=== PATIENT | female | born 1990 | race Caucasian/White ===

== ENCOUNTER 2017-07-02 09:43 | Outpatient (CLI) | payer BC, MEDICAID | END 2017-07-02 10:40 | disposition home or self-care (01) | LOC: LC 09:43 | PROVIDERS: ATTEND Obstetrics & Gynecology | PROC: 4A1HXCZ Monitoring of Products of Conception, Cardiac Rate, External Approach (ICD-10-PCS; principal; 2017-07-02) | DX: Z34.93 Encounter for supervision of normal pregnancy, unspecified, third trimester (principal); Z36 Encounter for antenatal screening of mother | CPT/HCPCS: 59025 ==

== ENCOUNTER 2017-08-14 22:13 | Outpatient (CLI) | payer MEDICAID ==
[2017-08-14 23:00] LABS: APPEARANCE,URINE SLIGHTLY-CLOUDY; BILIRUBIN,URINE NEGATIVE (NEGATIVE); GLUCOSE, URINE NEGATIVE (NEGATIVE); KETONES,URINE NEGATIVE (NEGATIVE); LEUKOCYTE ESTERASE,URINE NEGATIVE (NEGATIVE); NITRITE,URINE NEGATIVE (NEGATIVE); PROTEIN,URINE NEGATIVE (NEGATIVE); URINE SPECIFIC GRAVITY 1.019
[2017-08-14] MEDS ORDERED: HYDROXYZINE PAMOATE 50 MG CAPSULE PO ONE (23:13)
[2017-08-14 23:16] LABS: URINE METHADONE SCREEN NEGATIVE; URINE OPIATES LOW NEGATIVE; URINE PHENCYCLIDINE SCREEN NEGATIVE
[2017-08-14 23:17] LABS: URINE BARBITURATES SCREEN NEGATIVE
[2017-08-14] MEDS ORDERED: HYDROXYZINE PAMOATE 50 MG CAPSULE ONE (23:25)
--- NOTE | 2017-08-14 23:41 | Non Stress Test Report ---
Non Stress Test Datetime Report Generated by CPN: 08/14/2017 23:41 DEMOGRAPHIC EGA NST: 38.2 EGA NST: 32.1 INDICATION Indication for Study: Ordered by Provider Indication for Study: Decreased Movement; Ordered by Provider Indication for Study (NST) Other: LC VITAL SIGNS Temperature - NST: 98.4 Pulse - NST: 95 RESP - NST: 14 NBPSYS NST: 124 NBPDIA NST: 59 MONITORING Monitor Explained: Monitor Explained; Test Explained; Patient Verbalized Understanding Monitor Explained: Monitor Explained; Test Explained; Patient Verbalized Understanding Time on Monitor: 08/14/2017 22:28 Time on Monitor: 07/02/2017 10:10 Time off Monitor: 08/14/2017 23:07 Time off Monitor: 07/02/2017 10:30 NST Duration: 39 NST Duration: 20 NST INTERVENTIONS NST Interventions: PO Hydration NST Interventions: PO Hydration; Reposition Patient Physician Notified NST: Dr Cooney BABY A: [id number] BABY A Movement : Present Movement : Present Contraction Frequency : x1 Contraction Frequency : Irr FHR Baseline : 150 Accelerations : 15X15 Accelerations : 15X15 Decelerations : None Decelerations : None Variability : Moderate 6-25bpm Variability : Moderate 6-25bpm NST Review: Meets Criteria for Reactive NST NST Review: Meets Criteria for Reactive NST NST Review and Verified By : anne garcia NST Review and Verified By : Ani Moffett RN NST Results: Reactive NST REPORT Report Trigger: Send Report
== END 2017-08-14 23:28 | disposition home or self-care (01) ==
LOC: LC 22:13
PROVIDERS: ATTEND Student in an Organized Health Care Education/Training Program
PROC: 4A1HXCZ Monitoring of Products of Conception, Cardiac Rate, External Approach (ICD-10-PCS; principal; 2017-08-14)
DX: O47.1 False labor at or after 37 completed weeks of gestation (principal); Z3A.38 38 weeks gestation of pregnancy
CPT/HCPCS: 81005; 80307; 59025; J3490

== ENCOUNTER 2017-08-26 12:17 | Inpatient (IN) | payer MEDICAID ==
[2017-08-26] MEDS ORDERED: OXYTOCIN/NORMAL SALINE 20 UNIT/1,000 ML RTUINJ IV PRN ×2 (12:37→16:35)
[2017-08-26] MEDS ORDERED: RINGERS SOLUTION,LACTATED 1,000 ML IV PRN (12:37)
[2017-08-26] MEDS ORDERED: RINGERS SOLUTION,LACTATED 300 ML IV ONE (12:37)
[2017-08-26 12:57] LABS: APPEARANCE,URINE SLIGHTLY-CLOUDY; BILIRUBIN,URINE NEGATIVE (NEGATIVE); GLUCOSE, URINE NEGATIVE (NEGATIVE); KETONES,URINE NEGATIVE (NEGATIVE); LEUKOCYTE ESTERASE,URINE TRACE (NEGATIVE); NITRITE,URINE NEGATIVE (NEGATIVE); PROTEIN,URINE 30 mg/dL (NEGATIVE); URINE SPECIFIC GRAVITY 1.019
[2017-08-26 13:20] LABS: URINE BARBITURATES SCREEN NEGATIVE; URINE METHADONE SCREEN NEGATIVE; URINE OPIATES LOW NEGATIVE; URINE PHENCYCLIDINE SCREEN NEGATIVE
[2017-08-26 13:35] LABS: ABSOLUTE LYMPHOCYTES (AUTO) 1.1 10^3/uL (0.5-4.7); ABSOLUTE MONOCYTES (AUTO) 0.6 10^3/uL (0.1-1.4); ABSOLUTE NEUT (AUTO) 6.1 10^3/uL (1.7-8.2); BASOPHILS % (AUTO) 0.4 % (0-2); EOSINOPHILS % (AUTO) 0.6 % (0-6); HEMOGLOBIN 11.4 g/dL (12.0-15.5); HGB HCT DIFFERENCE 1.2; LYMPHOCYTES % (AUTO) 13.5 % (13-45); MEAN CORPUSCULAR HEMOGLOBIN 28.8 pg (27.0-33.4); MEAN CORPUSCULAR HGB CONC 34.4 g/dL (32.0-36.0); MEAN CORPUSCULAR VOLUME 84 fl (80-97); MONOCYTES % (AUTO) 7.2 % (3-13); RED BLOOD COUNT 3.94 10^6/uL (3.72-5.28); RED CELL DISTRIBUTION WIDTH 13.1 % (11.5-14.0); SEGMENTED NEUTROPHILS % (AUTO) 78.3 % (42-78); WHITE BLOOD COUNT 7.8 10^3/uL (4.0-10.5)
[2017-08-26] MEDS ORDERED: OXYTOCIN/NORMAL SALINE 0 UNIT/0 ML RTUINJ ONE (14:13)
--- NOTE | 2017-08-26 15:18 | L&D Progress Notes ---
PROGRESS NOTES Datetime Report Generated by CPN: 08/26/2017 15:17 PROGRESS NOTE Comment: going to ROM but pt wants a epidural before we arom, intensity in uc's is worse, IVF bolus and epidural MEMBRANES Membranes: Intact SIGNATURE SIGNATURE: [id number];[id number] SIGNATURE: [id number] Assignment: Braulio Pierce DO Signature: with User ID: [email or web address] : with User ID: [email or web address]
[2017-08-26] MEDS ORDERED: EPHEDRINE SULFATE INJ 50 MG/1 ML AMPULE ONE (15:22)
[2017-08-26] MEDS ORDERED: BUPIVACAINE HCL 0.25 % INJ/PF (2.5 MG/1 ML) 30 ML VIAL ONE (15:23)
[2017-08-26] MEDS ORDERED: FENTANYL/BUPIVACAINE/NS/PF 0 MCG/0 ML RTUINJ EPI ONE (15:23)
[2017-08-26] MEDS ORDERED: OXYTOCIN/NORMAL SALINE 20 UNIT/1,000 ML RTUINJ ONE (15:25)
[2017-08-26] MEDS ORDERED: LIDOCAINE 1% INJ-PF (10 MG/ML) 30 ML SDV ONE (15:26)
[2017-08-26] MEDS ORDERED: MISOPROSTOL 0.2 MG TABLET ONE (15:26)
[2017-08-26] MEDS ORDERED: GLYCERIN/WITCH HAZEL LEAF 1 EACH MED..PAD TP PRN (16:35)
[2017-08-26] MEDS ORDERED: DIPHENHYDRAMINE HCL 25 MG CAPSULE PO PRN (16:35)
[2017-08-26] MEDS ORDERED: PROMETHAZINE HCL 25 MG TABLET PO PRN (16:35)
[2017-08-26] MEDS ORDERED: DIPH/PERTUSS(ACELL)/TETANUS VAC/PF 0.5 ML SYR (>=10YO) IM PRN (16:35)
[2017-08-26] MEDS ORDERED: ACETAMINOPHEN 650 MG SUPP.RECT PR PRN (16:35)
[2017-08-26] MEDS ORDERED: MISOPROSTOL 0.2 MG TABLET PR PRN (16:35)
[2017-08-26] MEDS ORDERED: MEASLES,MUMPS&RUBELLA VACC/PF 0.5 ML VIAL SUBCUT PRN (16:35)
[2017-08-26] MEDS ORDERED: PROMETHAZINE HCL 25 MG SUPP.RECT PR PRN (16:35)
[2017-08-26] MEDS ORDERED: BENZOCAINE/MENTHOL AEROSOL SPRAY 56 ML TOP PRN (16:35)
[2017-08-26] MEDS ORDERED: DIBUCAINE 1% OINTMENT 28 GM TP PRN (16:35)
[2017-08-26] MEDS ORDERED: ACETAMINOPHEN WITH CODEINE #3 TABLET PO PRN ×2 (16:35)
[2017-08-26] MEDS ORDERED: PROMETHAZINE HCL INJ 25 MG/1 ML VIAL IV PRN (16:35)
[2017-08-26] MEDS ORDERED: NA PHOS,M-B/NA PHOS,DI-BA (ADULT) 133 ML ENEMA PR PRN (16:35)
[2017-08-26] MEDS ORDERED: PSEUDOEPHEDRINE HCL 30 MG TABLET PO PRN (16:35)
[2017-08-26] MEDS ORDERED: MAGNESIUM HYDROXIDE SUSP 30 ML UDCUP PO PRN (16:35)
[2017-08-26] MEDS ORDERED: IBUPROFEN 800 MG TABLET ONE (16:40)
[2017-08-26] MEDS ORDERED: OXYCODONE-ACETAMINOPHEN 5-325 MG TABLET ONE (16:40)
--- NOTE | 2017-08-26 18:45 | Admission Physical ---
Datetime Report Generated by CPN: 08/26/2017 18:45 CURRENT ADMISSION Hx Assessment: The History has been Reviewed and is Current Chief Complaint: Uterine Contractions Indication for Induction: Post Dates Indication for Induction: Postterm, Intrauterine ; No Active Labor; Intact Membranes Indication for Induction- Other: Oligo Admit Plan: Admit to Unit; Initiate Labor Induction Protocol ALLERGIES Medication Allergies: No Medication Allergies: No Known Allergies (08/26/2017) Medication Allergies: No Known Allergies (07/02/2017) Medication Allergies: No Known Allergies (03/29/2012) Latex: No Latex Allergies OBSTETRICAL HISTORY EDC: 08/26/2017 00:00 : 4 Para: 1 Term: 1 : 0 SAB: 2 Ectopic: 0 Livin Cesareans: 0 VBACs: 0 Multiple Births: 0 Gestational Diabetes: No Rh Sensitization: No Incompetent Cervix: No JONI: No Infertility: No ART Treatment: No Uterine Anomaly: No IUGR: No Hx Previous C/S: No Macrosomia: No Hx Loss/Stillborn: No PIH: No Hx : No Placenta Previa/Abruption: No Depression/PP Depression: Yes PTL/PROM: No Post Hemorrhage: No Current Procedures: Ultrasound Obstetrical History Comments: 2011 38 weeks baby boy 2013 cureent SEE RECORDS Alcohol: No Marijuana : No Cocaine: No Other Illicit Drugs: No Cigarettes: Current Everyday Smoker. 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 Surgery: No Heart Disease: No Hosp/Surgery: Yes Autoimmune Disorder: No Anesthetic Complications: No Kidney Disease: No Abnormal Pap Smear: Yes Neuro/Epilepsy: No Psychiatric Disorders: Yes Other Medical Diseases: No Hepatitis/Liver Disease: No Significant Family History: No Varicosities/Phlebitis: No Trauma/Violence : No Thyroid Dysfunction: No Medical History Comments: CHILDBIRTH abnormal pap smear 2017 Hx of Anxiety Hospitalization-[facility] INFECTIOUS HISTORY Gonorrhea: No Genital Herpes: No Chlamydia: No Tuberculosis: No Syphilis: No Hepatitis: No HIV/AIDS Exposure: No Rash or Viral Illness: No HPV: Yes Infectious History Comments: HPV 2015 PHYSICAL EXAM General: Normal HEENT: Normal Neurologic: Normal Thyroid: Normal Heart: Normal Lungs: Normal Breast: Deferred Back: Normal Abdomen: Normal Genitourinary Exam: Normal Extremities: Normal DTRs: Normal Pelvic Type: Adequate Physical Exam Comments: KHRIS = 4.7, 40 weeks Hx: anxiety, depression, PPD, GHTN, GBS neg Vital Signs: Reviewed MEMBRANES Membranes: Intact FETUS A EGA: 40.0 Monitoring: External US FHR- Baseline: 145 Variability: Moderate 6-25bpm Accelerations: 15X15 Decelerations: Variable Admit Comment: Admitted from office with oligo. GBS neg, Cat 1, Plan: Pitocin, AROM PLANS FOR LABOR AND DELIVERY Labor and Delivery: None Pain Management: Epidural Feeding Preference: Breast Benefit of Breast Feed Discussed: Yes Circumcision: N/A INFORMED CONSENT Assignment: Braulio Pierce DO Signature: with User ID: [email or web address] : with User ID: [email or web address]
[2017-08-26] MEDS: FAMOTIDINE 20 MG TABLET PO SCH (21:21)
[2017-08-26] MEDS: IBUPROFEN 800 MG TABLET PO SCH (21:26)
[2017-08-26] MEDS: FERROUS SULFATE 325 MG TABLET PO SCH (21:39)
[2017-08-26] MEDS: DOCUSATE SODIUM 100 MG CAPSULE PO SCH (21:39)
[2017-08-27] MEDS: IBUPROFEN 800 MG TABLET PO SCH ×3 (06:26→22:12)
[2017-08-27 07:14] LABS: HEMATOCRIT 33.5 % (36.0-47.0); HEMOGLOBIN 11.5 g/dL (12.0-15.5); MEAN CORPUSCULAR HEMOGLOBIN 28.9 pg (27.0-33.4); MEAN CORPUSCULAR HGB CONC 34.3 g/dL (32.0-36.0); MEAN CORPUSCULAR VOLUME 84 fl (80-97); RED BLOOD COUNT 3.97 10^6/uL (3.72-5.28)
[2017-08-27] MEDS: PRENATAL VITAMIN W-O CA NO5/FE FUMARATE/FA CAPSULE PO SCH (09:43)
[2017-08-27] MEDS: DOCUSATE SODIUM 100 MG CAPSULE PO SCH ×2 (09:44→18:19)
[2017-08-27] MEDS: SENNOSIDES/DOCUSATE 8.6-50 MG 1 EACH TABLET PO SCH (09:45)
[2017-08-27] MEDS: FAMOTIDINE 20 MG TABLET PO SCH ×2 (09:45→22:13)
[2017-08-27] MEDS: FERROUS SULFATE 325 MG TABLET PO SCH ×2 (09:47→18:19)
--- NOTE | 2017-08-27 11:22 | PDOC PROGRESS REPORT ---
Subjective-OB Subjective: Post Delivery Day:1 26 year old G2 now P2 s/p ppd1. Voiding, ambulating and without difficulty. Denies any needs at this time Physical Exam (OB) Vital Signs: Temp Pulse Resp BP Pulse Ox 97.8 F 58 L 18 115/74 100 08/27/17 08:58 08/27/17 08:58 08/27/17 08:58 08/27/17 08:58 08/27/17 08:58 Intake & Output 08/26/17 08/27/17 08/28/17 06:59 06:59 06:59 Weight 81 kg - General General Appearance: Appears well In distress: None - PIH/Pre-Eclampsia Clonus: Negative Headache: Absent Epigastric Pain: No Visual Changes: No - Episiotomy/Laceration Site Condition: N/A - Lochia Lochia Amount: Small 10-25 ml Lochia Color: Rubra/Red - Abdomen Description: Soft Hernia Present: No Fundal Description: Firm, Midline Fundal Height: u/u - u/2 - Respiratory Respiratory Status: No respiratory distress - Extremities Upper extremity: Normal inspection Lower extremities: Normal inspection - Neurological Cognition: Normal Orientation: AAOx4 - Psychological Associated symptoms: Normal affect, Normal mood Objective-Diagnostic Laboratory: 08/27/17 06:48 08/26/17 08/26/17 08/26/17 12:19 13:21 13:21 WBC 7.8 RBC 3.94 Hgb 11.4 L Hct 33.0 L MCV 84 MCH 28.8 MCHC 34.4 RDW 13.1 Plt Count 231 Seg Neutrophils % 78.3 H Lymphocytes % 13.5 Monocytes % 7.2 Eosinophils % 0.6 Basophils % 0.4 Absolute Neutrophils 6.1 Absolute Lymphocytes 1.1 Absolute Monocytes 0.6 Absolute Eosinophils 0.0 Absolute Basophils 0.0 Urine Color YELLOW Urine Appearance SLIGHTLY-CLOUDY Urine pH 7.0 Ur Specific [place] 1.019 Urine Protein 30 H Urine Glucose (UA) NEGATIVE Urine Ketones NEGATIVE Urine Blood NEGATIVE Urine Nitrite NEGATIVE Ur Leukocyte Esterase TRACE H Blood Type O POSITIVE Antibody Screen NEGATIVE 08/27/17 06:48 WBC 10.0 RBC 3.97 Hgb 11.5 L Hct 33.5 L MCV 84 MCH 28.9 MCHC 34.3 RDW 13.0 Plt Count 200 Seg Neutrophils % Lymphocytes % Monocytes % Eosinophils % Basophils % Absolute Neutrophils Absolute Lymphocytes Absolute Monocytes Absolute Eosinophils Absolute Basophils Urine Color Urine Appearance Urine pH Ur Specific [place] Urine Protein Urine Glucose (UA) Urine Ketones Urine Blood Urine Nitrite Ur Leukocyte Esterase Blood Type Antibody Screen Assessment and Plan(PN) - Assessment and Plan (1) Oligohydramnios Qualifiers: Fetus number: single or unspecified fetus Trimester: third trimester Qualified Code(s): O41.03X0 - Oligohydramnios, third trimester, not applicable or unspecified Is this a current diagnosis for this admission?: Yes Plan: delivered (2) Normal vaginal delivery Is this a current diagnosis for this admission?: Yes Plan: routine pp care - Time Spent with Patient Time with patient: 15-25 minutes Medications reviewed and adjusted accordingly: Yes - Disposition Anticipated Discharge: Home Within: within 24 hours
[2017-08-28] MEDS: IBUPROFEN 800 MG TABLET PO SCH (05:41)
--- NOTE | 2017-08-28 09:43 | PDOC PROGRESS REPORT ---
Subjective-OB Subjective: Post Delivery Day: 26 year old. Denies any needs at this time Doing well, BF @ BS, ready to go home, scant bleeding, no pain, eating well Physical Exam (OB) Vital Signs: Temp Pulse Resp BP Pulse Ox 98.1 F 52 L 16 131/73 H 100 08/28/17 08:02 08/28/17 08:02 08/28/17 08:02 08/28/17 08:02 08/28/17 08:02 Intake & Output 08/27/17 08/28/17 08/29/17 06:59 06:59 06:59 Intake Total 900 Balance 900 Weight 81 kg - PIH/Pre-Eclampsia Clonus: Negative Headache: Absent Epigastric Pain: No Visual Changes: No - Lochia Lochia Amount: Scant < 10 ml Lochia Color: Rubra/Red - Abdomen Description: Soft Hernia Present: No Fundal Description: Firm, Midline Fundal Height: u/u - u/2 Objective-Diagnostic Laboratory: 08/27/17 06:48 Assessment and Plan(PN) - Assessment and Plan (1) Oligohydramnios Qualifiers: Fetus number: single or unspecified fetus Trimester: third trimester Qualified Code(s): O41.03X0 - Oligohydramnios, third trimester, not applicable or unspecified Is this a current diagnosis for this admission?: Yes (2) Normal vaginal delivery Is this a current diagnosis for this admission?: Yes - Time Spent with Patient Time with patient: Less than 15 minutes Medications reviewed and adjusted accordingly: Yes - Disposition Anticipated Discharge: Home Within: Other - home today
--- NOTE | 2017-08-28 09:46 | PDOC DISCHARGE SUMMARY ---
Final Diagnosis Discharge Date: 08/28/17 - Final Diagnosis (1) Oligohydramnios Is this a current diagnosis for this admission?: Yes (2) Normal vaginal delivery Is this a current diagnosis for this admission?: Yes Discharge Data - Discharge Medication Home Medications: Pnv,Calcium 72/Iron/Folic Acid [Pnv Plus Multivit Tab] 1 tab PO DAILY 07/02/17 Gestational Age: 40 Reason(s) for Admission: Onset of Labor Admission Note: oligohydramnios Procedures: NST, Ultrasound Intrapartum Procedure(s): Spontaneous Vaginal Delivery - [place] Data Baby 1 Female at 1 minute: 9 at 5 minutes: 9 Weight: 3.6 kg Home with Mother: Yes Complications: No - Diagnosis Test Laboratory: Temp Pulse Resp BP Pulse Ox 98.1 F 52 L 16 131/73 H 100 08/28/17 08:02 08/28/17 08:02 08/28/17 08:02 08/28/17 08:02 08/28/17 08:02 08/26/17 08/26/17 08/27/17 12:19 13:21 06:48 RBC 3.94 3.97 Hgb 11.4 L 11.5 L Hct 33.0 L 33.5 L Urine Opiates Screen NEGATIVE - Discharge information/Instructions Discharge Activity: Activity As Tolerated, No Lifting Over 10 Pounds, Pelvic Rest Discharge Diet: As Tolerated, Regular Disposition: HOME, SELF-CARE Follow up with: [facility] in: 4, Weeks
[2017-08-28] MEDS: SENNOSIDES/DOCUSATE 8.6-50 MG 1 EACH TABLET PO SCH (11:33)
[2017-08-28] MEDS: DOCUSATE SODIUM 100 MG CAPSULE PO SCH (11:33)
[2017-08-28] MEDS: FAMOTIDINE 20 MG TABLET PO SCH (11:33)
[2017-08-28] MEDS: FERROUS SULFATE 325 MG TABLET PO SCH (11:34)
[2017-08-28] MEDS: PRENATAL VITAMIN W-O CA NO5/FE FUMARATE/FA CAPSULE PO SCH (11:34)
[2017-08-28 13:19] VITALS: BP 120/60
--- NOTE | 2017-09-01 14:14 | Delivery Summary ---
Del Sum A-C Datetime Report Generated by CPN: 09/01/2017 14:14 DELIVERY PERSONNEL DELIVERY PERSONNEL: [id number] Delivery Doctor:: Claribel Emmanuel CNM Labor and Delivery Nurse:: Tucker Caro RN Nursery Nurse:: July Reyesprabhjotdeepa, RN MATERNAL INFORMATION Delivery Anesthesia: None Medications After Delivery: Cytotec 600mcg Per Rectum/Vagina Estimated Blood Loss (ml): 300 Maternal Complications: Precipitous Labor (<3hrs) Provider Comments: Pt progressed quickly, on perineum, voable female from OA to HALEY over intact perineum and compound handm placed on mothers abd, cord clamped and cut after 2 minutes by gmother. Spont del of grossly normal intact placenta, 3 vc, EBL = 300 cc. FFFM, IV Pitocin, massagem cytotec 600mcg via rectum Baby and mom remain in recovery in stable xondition (Annotations: Data stored by N on behalf of user) LABOR SUMMARY EDC: 08/26/2017 00:00 No. Babies in Womb: 1 Attempted: No Labor Anesthesia: None LABOR INFORMATION Reason for Induction: Oligohydramnios Onset of Labor: 08/26/2017 14:40 Complete Dilatation: 08/26/2017 16:11 Oxytocin: Induction Group B Beta Strep: negative Steroids Given: None Reason Steroids Not Administered: Not Applicable MEMBRANES Membranes Rupture Method: Spontaneous Rupture of Membranes: 08/26/2017 16:00 Length of Rupture (hr): 0.22 Amniotic Fluid Color: Bloody Amniotic Fluid Amount: Scant Amniotic Fluid Odor: Normal STAGES OF LABOR Stage 1 hr: 1 Stage 1 min: 31 Stage 2 hr: 0 Stage 2 min: 2 Stage 3 hr: 0 Stage 3 min: 6 Total Time in Labor hr: 1 Total Time in Labor min: 39 VAGINAL DELIVERY Episiotomy: None Laceration #1: None Laceration Extension #1: N/A Laceration Repair: Not Applicable CSECTION DELIVERY Primary Indication: N/A BABY A INFORMATION Infant Delivery Date/Time: 08/26/2017 16:13 Method of Delivery: Vaginal Born in Route : No : N/A Forceps: N/A Vacuum Extraction: N/A Shoulder Dystocia : No PRESENTATION/POSITION BABY A Presentation: Cephalic Cephalic Presentation: Vertex Vertex Position: Right Occipital Anterior Breech Presentation: N/A PLACENTA INFORMATION BABY A Placenta Delivery Time : 08/26/2017 16:19 Placenta Method of Delivery: Spontaneous Placenta Status: Delivered SCORES BABY A Heart Rate 1 min: >100 bpm Resp Effort 1 min: Good Cry Reflex Irritability 1 min: Cough or Sneeze or Pulls Away Muscle Tone 1 min: Active Motion Color 1 min: Body [place] Walk, Extremities Blue SCORE 1 MIN: 9 Heart Rate 5 min: >100 bpm Resp Effort 5 min: Good Cry Reflex Irritability 5 min: Cough or Sneeze or Pulls Away Muscle Tone 5 min: Active Motion Color 5 min: Body [place] Walk, Extremities Blue SCORE 5 MIN: 9 INFANT INFORMATION BABY A Gestational Age at Delivery: 40.0 Gestational Status: Full Term- 39- 40.6 Weeks Outcome : Liveborn Condition : Stable Sex: Female IDENTIFICATION BABY A Verification Date/Time: 08/26/2017 16:13 ID Band Number: [id number] Mother's Name Verified: Yes Infant RN Verifying Infant: Mohamud Gan SIMA Additional Verifying Personnel: ANEUDY Cohen WEIGHT/LENGTH BABY A Infant Birthweight (gm): 3590 Infant Weight (lb): 7 Weight (oz): 15 Infant Length (in): 21.25 Length (cm): 53.98 CORD INFORMATION BABY A No. Cord Vessels: 3 Nuchal Cord : N/A Nuchal Cord- Other: compound hand Cord Blood Taken: Yes-For Eval (Mom's Blood Type - or O+) Infant Suction: None ASSESSMENT BABY A Infant Complications: None Physical Findings at Delivery: Within Normal Limits Respirations: Appears Normal Skin to Skin: Yes Skin to Skin Time (min): 60 Cardiac Cath Lab Radiology Technologist/ALS Called : No Infant Care By: Tucker Caro RN
== END 2017-08-28 14:45 | disposition home or self-care (01) | DRG 775 ==
LOC: LR 12:17 → 2S 18:44
PROVIDERS: ADMIT Obstetrics & Gynecology; ATTEND Obstetrics & Gynecology
PROC: 10E0XZZ Delivery of Products of Conception, External Approach (ICD-10-PCS; principal; 2017-08-26)
PROC: 3E033VJ Introduction of Other Hormone into Peripheral Vein, Percutaneous Approach (ICD-10-PCS; 2017-08-26)
PROC: 4A1HXCZ Monitoring of Products of Conception, Cardiac Rate, External Approach (ICD-10-PCS; 2017-08-26)
DX: O41.03X0 Oligohydramnios, third trimester, not applicable or unspecified (principal); O48.0 Post-term pregnancy; O99.344 Other mental disorders complicating childbirth; F32.9 Major depressive disorder, single episode, unspecified; O99.334 Smoking (tobacco) complicating childbirth; F17.210 Nicotine dependence, cigarettes, uncomplicated; O62.3 Precipitate labor; O32.6XX0 Maternal care for compound presentation, not applicable or unspecified; Z87.891 Personal history of nicotine dependence; Z28.82 Immunization not carried out because of caregiver refusal; Z3A.40 40 weeks gestation of pregnancy; Z37.0 Single live birth
CPT/HCPCS: 36415; 80307; 81005; 85025; 85027; 86592; 86850; 86900; 86901; J2590; J3490

== ENCOUNTER → 2019-09-10 | Outpatient (CLI) | payer BC, MEDICAID | LOC: LAB 18:12 | PROVIDERS: ATTEND Nurse Practitioner Family | DX: R30.0 Dysuria (principal) | CPT/HCPCS: 87086; 87088; 87186 ==

== ENCOUNTER 2020-09-11 17:37 | Outpatient (CLI) | payer BC ==
[2020-09-11 18:41] LABS: APPEARANCE,URINE SLIGHTLY-CLOUDY; BILIRUBIN,URINE NEGATIVE (NEGATIVE); COLOR,URINE YELLOW; GLUCOSE, URINE NEGATIVE (NEGATIVE); KETONES,URINE NEGATIVE (NEGATIVE); LEUKOCYTE ESTERASE,URINE NEGATIVE (NEGATIVE); NITRITE,URINE NEGATIVE (NEGATIVE); PROTEIN,URINE NEGATIVE (NEGATIVE); URINE SPECIFIC GRAVITY 1.016; UROBILINOGEN,URINE NEGATIVE mg/dL (<2.0)
[2020-09-11 19:05] LABS: URINE AMPHETAMINES SCREEN NEGATIVE; URINE BARBITURATES SCREEN NEGATIVE; URINE BENZODIAZEPINES SCREEN NEGATIVE; URINE COCAINE SCREEN NEGATIVE; URINE MARIJUANA (THC) SCREEN NEGATIVE; URINE METHADONE SCREEN NEGATIVE; URINE PHENCYCLIDINE SCREEN NEGATIVE
[2020-09-11 19:08] LABS: UR PRO/CREAT RATIO RESULT 0.1 mg/mg (0.0-0.2); URINE CREATININE 111.8 mg/dL (16-327); URINE PROTEIN 10.4 mg/dL (<12)
[2020-09-11 19:35] LABS: ABSOLUTE EOSINOPHILS # (AUTO) 0.1 10^3/uL (0.0-0.6); ABSOLUTE LYMPHOCYTES (AUTO) 1.8 10^3/uL (0.5-4.7); ABSOLUTE MONOCYTES (AUTO) 0.6 10^3/uL (0.1-1.4); ABSOLUTE NEUT (AUTO) 5.9 10^3/uL (1.7-8.2); BASOPHILS % (AUTO) 0.4 % (0-2); EOSINOPHILS % (AUTO) 0.9 % (0-6); HEMATOCRIT 36.4 % (36.0-47.0); HEMOGLOBIN 12.7 g/dL (12.0-15.5); MEAN CORPUSCULAR VOLUME 89 fl (80-97); MONOCYTES % (AUTO) 7.5 % (3-13); PLATELET COUNT 221 10^3/uL (150-450); RED BLOOD COUNT 4.12 10^6/uL (3.72-5.28); RED CELL DISTRIBUTION WIDTH 13.2 % (11.5-14.0); SEGMENTED NEUTROPHILS % (AUTO) 70.2 % (42-78); TOTAL CELLS COUNTED % (AUTO) 100 %; WHITE BLOOD COUNT 8.4 10^3/uL (4.0-10.5)
[2020-09-11 19:51] LABS: ALBUMIN 3.9 g/dL (3.5-5.0); ALKALINE PHOSPHATASE 120 U/L (38-126); ANION GAP 13 (5-19); ASPARTATE AMINO TRANSFERASE 16 U/L (14-36); BILIRUBIN,DIRECT 0.1 mg/dL (0.0-0.4); BILIRUBIN,TOTAL 0.6 mg/dL (0.2-1.3); BLOOD UREA NITROGEN 8 mg/dL (7-20); CALCIUM 9.3 mg/dL (8.4-10.2); CARBON DIOXIDE 21 mmol/L (22-30); CHLORIDE 101 mmol/L (98-107); GLUCOSE 83 mg/dL (75-110); POTASSIUM 3.9 mmol/L (3.6-5.0); TOTAL PROTEIN 7.3 g/dL (6.3-8.2); URIC ACID 4.3 mg/dL (2.5-6.2)
--- NOTE | 2020-09-12 12:04 | Non Stress Test Report ---
Non Stress Test Datetime Report Generated by CPN: 09/12/2020 12:04 DEMOGRAPHIC Test Number: 1 EGA NST: 38.4 EGA NST: 38.4 INDICATION Indication for Study (NST) Other: LC- preE workup Indication for Study (NST) Other: preeclampsia workup VITAL SIGNS Temperature - NST: 98.3 Pulse - NST: 103 RESP - NST: 18 NBPSYS NST: 130 NBPDIA NST: 68 URINE RESULTS Urine Protein, NST: Negative Urine Ketones - NST: Negative Urine Glucose - NST: Negative Urine Blood - NST: Negative MONITORING Monitor Explained: Monitor Explained; Test Explained; Patient Verbalized Understanding Monitor Explained: Monitor Explained; Test Explained; Patient Verbalized Understanding Time on Monitor: 09/11/2020 19:17 Time on Monitor: 09/11/2020 18:15 Time off Monitor: 09/11/2020 20:08 Time off Monitor: 09/11/2020 18:57 NST Duration: 51 NST Duration: 42 NST INTERVENTIONS NST Interventions: Reposition Patient NST Interventions: PO Hydration Physician Notified NST: Dr. Haddad Physician Notified NST: Dr. Haddad BABY A: [id number] BABY A Movement : Present Movement : Present Contraction Frequency : irritability FHR Baseline : 130 Accelerations : 15X15 Decelerations : None Variability : Moderate 6-25bpm NST Review: Meets Criteria for Reactive NST NST Review and Verified By : SIMA Le Results: Reactive NST REPORT Report Trigger: Send Report Report Trigger: Send Report
== END 2020-09-11 20:08 | disposition home or self-care (01) ==
LOC: LC 17:37
PROVIDERS: ATTEND Obstetrics & Gynecology Gynecology
DX: O14.93 Unspecified pre-eclampsia, third trimester (principal); Z3A.38 38 weeks gestation of pregnancy; Z02.83 Encounter for blood-alcohol and blood-drug test
CPT/HCPCS: 36415; 59025; 80053; 80307; 81001; 82570; 83615; 84156; 84550; 85025

== ENCOUNTER 2020-09-12 12:04 | Inpatient (IN) | payer BC ==
[2020-09-12] MEDS ORDERED: RINGERS SOLUTION,LACTATED 1,000 ML IV ONE (12:26)
[2020-09-12] MEDS ORDERED: RINGERS SOLUTION,LACTATED 1,000 ML IV PRN (12:26)
[2020-09-12 13:08] LABS: HEMATOCRIT 35.3 % (36.0-47.0); HEMOGLOBIN 12.3 g/dL (12.0-15.5); MEAN CORPUSCULAR HEMOGLOBIN 30.9 pg (27.0-33.4); MEAN CORPUSCULAR VOLUME 88 fl (80-97); PLATELET COUNT 213 10^3/uL (150-450); RED CELL DISTRIBUTION WIDTH 13.4 % (11.5-14.0); WHITE BLOOD COUNT 8.1 10^3/uL (4.0-10.5)
--- NOTE | 2020-09-12 13:08 | Admission Physical ---
Datetime Report Generated by CPN: 09/12/2020 13:08 CURRENT ADMISSION Hx Assessment: The History has been Reviewed and is Current Chief Complaint: Scheduled Induction of Labor; Sent from OB Office for Evaluation and Treatment - Please Specify Chief Complaint Other: sent from office for IOL severe BPs Indication for Induction: Chronic Primary/Essential HTN Indication for Induction- Other: CHTN with severe BPs CHTN vs pre-e Admit Impression : Term, Intrauterine Admit Plan: Admit to Unit; Initiate Labor Induction Protocol ALLERGIES Medication Allergies: No Medication Allergies: No Known Allergies (09/12/2020) Latex: No Latex Allergies OBSTETRICAL HISTORY EDC: 09/21/2020 00:00 : 5 Para: 2 Term: 0 : 0 SAB: 2 IAB: 0 Livin Gestational Diabetes: No Rh Sensitization: No Incompetent Cervix: No JONI: No Infertility: No ART Treatment: No Uterine Anomaly: No IUGR: No Hx Previous C/S: No Macrosomia: No Hx Loss/Stillborn: No PIH: Yes Hx : No Placenta Previa/Abruption: No Depression/PP Depression: Yes PTL/PROM: No Post Hemorrhage: No Current Procedures: Ultrasound; NST Obstetrical History Comments: G1 - 05/18/12 38.4wk male G2 - 08/2014 SAB D_C G3 - 09/2015 G4 - 08/26/2017 40wk female SEE RECORDS Alcohol: No Marijuana : No Cocaine: No Other Illicit Drugs: No Cigarettes: Former Smoker. 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 Heart Disease: No Hosp/Surgery: Yes Autoimmune Disorder: No Anesthetic Complications: No Kidney Disease: No Abnormal Pap Smear: Yes Neuro/Epilepsy: No Psychiatric Disorders: Yes Other Medical Diseases: Yes Hepatitis/Liver Disease: No Significant Family History: No Varicosities/Phlebitis: No Thyroid Dysfunction: No Medical History Comments: h/o of preeclampsia with prior , ghtn current ; depression and anxiety (prescribed Zoloft during but is not taking); childbirth x 2; ASCUS-HPV neg pap and colpo 2016, last pap wnl; migraines with aura INFECTIOUS HISTORY Gonorrhea: No Genital Herpes: No Chlamydia: No Tuberculosis: No Syphilis: No Hepatitis: No HIV/AIDS Exposure: No Rash or Viral Illness: No HPV: No PHYSICAL EXAM General: Normal Heart: Normal Lungs: Normal Abdomen: Normal Extremities: Normal Pelvic Type: Adequate Physical Exam Comments: proven to 9lbs 1 oz Vital Signs: Reviewed; Within Normal Limits VAGINAL EXAM Contraction Comments: rare FETUS A EGA: 38.5 Monitoring: External US Decelerations: None FHR Category: Category I Estimated Weight (gm): 4120 Presentation: Vertex Admit Comment: 29yo into L_D from clinic for direct admission with severe range bps in office x2 days. Pt is O pos, RI, GBS neg with significant medical hx of depression, anxiety and CHTN. Has done 2 pre-e work ups last one 08/27 with 24hr urine 296 all other wnl. Plan is IOL with pitocin at this time. pre-e labs drawn on admission. Dr. Neal is the OB precision layout worker today and aware of admission. PLANS FOR LABOR AND DELIVERY Labor and Delivery: None Pain Management: Epidural Feeding Preference: Breast Benefit of Breast Feed Discussed: Yes Circumcision: Yes INFORMED CONSENT Assignment: Arabella Neal MD Signature: with User ID: [email or web address] : with User ID: [email or web address]
[2020-09-12 13:09] LABS: URINE AMPHETAMINES SCREEN NEGATIVE; URINE BARBITURATES SCREEN NEGATIVE; URINE BENZODIAZEPINES SCREEN NEGATIVE; URINE COCAINE SCREEN NEGATIVE; URINE MARIJUANA (THC) SCREEN NEGATIVE; URINE METHADONE SCREEN NEGATIVE; URINE PHENCYCLIDINE SCREEN NEGATIVE
[2020-09-12] MEDS ORDERED: OXYTOCIN/0.9 % SODIUM CHLORIDE 30 UNIT/500 ML RTUINJ IV PRN ×2 (13:11→19:39)
[2020-09-12 13:13] LABS: UR PRO/CREAT RATIO RESULT 0.1 mg/mg (0.0-0.2); URINE CREATININE 108.5 mg/dL (16-327); URINE PROTEIN 10.2 mg/dL (<12)
[2020-09-12] MEDS ORDERED: MISOPROSTOL 0.2 MG TABLET ONE (13:25)
[2020-09-12] MEDS ORDERED: OXYTOCIN 10 UNIT/ML VIAL ONE (13:25)
[2020-09-12] MEDS ORDERED: OXYTOCIN/0.9 % SODIUM CHLORIDE 30 UNIT/500 ML RTUINJ ONE (13:26)
[2020-09-12] MEDS ORDERED: ROPIVACAINE HCL 0.2% INJ/PF (2 MG/ML) 20 ML SDV ONE (13:26)
[2020-09-12] MEDS ORDERED: FENTANYL/BUPIVACAINE/NS/PF 300 MCG/150 ML RTUINJ EPI ONE (13:26)
[2020-09-12] MEDS ORDERED: EPHEDRINE SULFATE INJ 50 MG/1 ML AMPULE ONE (13:26)
[2020-09-12] MEDS ORDERED: LIDOCAINE 1% INJ-PF (10 MG/ML) 30 ML SDV ONE (13:26)
[2020-09-12 13:28] LABS: ALBUMIN 3.6 g/dL (3.5-5.0); ALKALINE PHOSPHATASE 107 U/L (38-126); ANION GAP 10 (5-19); ASPARTATE AMINO TRANSFERASE 16 U/L (14-36); BILIRUBIN,DIRECT 0.1 mg/dL (0.0-0.4); BILIRUBIN,TOTAL 0.7 mg/dL (0.2-1.3); BLOOD UREA NITROGEN 9 mg/dL (7-20); CALCIUM 8.9 mg/dL (8.4-10.2); CARBON DIOXIDE 20 mmol/L (22-30); CHLORIDE 104 mmol/L (98-107); GLUCOSE 113 mg/dL (75-110); POTASSIUM 3.9 mmol/L (3.6-5.0); TOTAL PROTEIN 6.7 g/dL (6.3-8.2)
[2020-09-12] MEDS ORDERED: FENTANYL CITRATE INJ/PF 100 MCG/2 ML AMPUL ONE (18:45)
[2020-09-12] MEDS ORDERED: GLYCERIN/WITCH HAZEL LEAF 1 EACH MED..WIPE TP PRN (19:39)
[2020-09-12] MEDS ORDERED: ACETAMINOPHEN WITH CODEINE #3 TABLET PO PRN ×2 (19:39)
[2020-09-12] MEDS ORDERED: PROMETHAZINE HCL 25 MG TABLET PO PRN (19:39)
[2020-09-12] MEDS ORDERED: ACETAMINOPHEN 650 MG SUPP.RECT PR PRN (19:39)
[2020-09-12] MEDS ORDERED: DIBUCAINE 1% OINTMENT 28 GM TP PRN (19:39)
[2020-09-12] MEDS ORDERED: NA PHOS,M-B/NA PHOS,DI-BA (ADULT) 133 ML ENEMA PR PRN (19:39)
[2020-09-12] MEDS ORDERED: ZOLPIDEM TARTRATE 5 MG TABLET PO PRN (19:39)
[2020-09-12] MEDS ORDERED: BENZOCAINE/MENTHOL AEROSOL SPRAY 56 ML TOP PRN (19:39)
[2020-09-12] MEDS ORDERED: PSEUDOEPHEDRINE HCL 30 MG TABLET PO PRN (19:39)
[2020-09-12] MEDS ORDERED: MEASLES,MUMPS&RUBELLA VACC/PF 0.5 ML VIAL SUBCUT PRN (19:39)
[2020-09-12] MEDS ORDERED: MAGNESIUM HYDROXIDE SUSP 30 ML UDCUP PO PRN (19:39)
[2020-09-12] MEDS ORDERED: DIPHENHYDRAMINE HCL 25 MG CAPSULE PO PRN (19:39)
[2020-09-12] MEDS ORDERED: DIPH/PERTUSS(ACELL)/TETANUS VAC/PF 0.5 ML SYR (>=10YO) IM PRN (19:39)
[2020-09-12] MEDS ORDERED: PROMETHAZINE HCL INJ 25 MG/1 ML VIAL IV PRN (19:39)
[2020-09-12] MEDS ORDERED: ACETAMINOPHEN 325 MG TABLET PO PRN (19:39)
[2020-09-12] MEDS ORDERED: PROMETHAZINE HCL 25 MG SUPP.RECT PR PRN (19:39)
[2020-09-12] MEDS ORDERED: IBUPROFEN 800 MG TABLET ONE (19:54)
[2020-09-12] MEDS: IBUPROFEN 800 MG TABLET PO SCH (19:58)
--- NOTE | 2020-09-12 22:04 | Birth Certificate Data ---
Cert Data Datetime Report Generated by CPN: 09/12/2020 22:03 CERTIFICATE DATA Delivery Provider: Arabella Neal MD (09/11/2020 17:44:Fernanda Mendoza RN) 47a. Care: Yes (09/11/2020 17:44:Paula Delgadillo RN) 47c. Date of Last Visit: 09/12/2020 00:00 (09/11/2020 17:44:Paula Delgadillo RN) 48a. Number of Prev Live Births: 2 (09/11/2020 17:44:Shannon Cornelius RN) 48b. Now Livin (09/11/2020 17:44:Shannon Cornelius RN) 48c. Live Births Now : 0 (09/11/2020 17:44:QS system process) 48e. Losses: 2 (09/11/2020 17:44:Shannon Cornelius RN) RISK FACTORS IN THIS 49a. Diabetes: No (09/11/2020 17:44:Shannon Cornelius RN) 49b. Hypertension: Yes (09/11/2020 17:44:Shannon Cornelius RN) Type of Hypertension: Gestational (PIH, Pre-eclampsia) (09/11/2020 17:44:Shannon Cornelius RN) 49c. Previous Births: 0 (09/11/2020 17:44:Shannon Cornelius RN) 49d. Stillborns: No (09/11/2020 17:44:Shannon Cornelius RN) 49d. IUGR: No (09/11/2020 17:44:Shannon Cornelius RN) 49e. Infertility Treatment: No (09/11/2020 17:44:Shannon Cornelius RN) Mother's Height 50b. Height Inches: 67 (09/12/2020 12:26:QS system process) Mother's Weight 51a. Pre- Weight (lbs): 190 (09/11/2020 17:44:Paula Delgadillo RN) 51b. Weight at Delivery (lbs): 213 (09/12/2020 12:26:QS system process) 52. Dt Last Normal Menses Began: 12/16/2019 00:00 (09/11/2020 17:44:Shannon Cornelius RN) Infections Present/Treated 53a. Gonorrhea: No (09/11/2020 17:44:Paula Delgadillo RN) Results this Hospital Visit : Negative (09/11/2020 17:44:Shannon Cornelius RN) 53b. Syphilis: No (09/11/2020 17:44:Paula Delgadillo RN) 53c. Chlamydia: No (09/11/2020 17:44:Paula Delgadillo RN) Results this Hospital Visit: Negative (09/11/2020 17:44:Shannon Cornelius RN) 53d. Hepatitis B: No (09/11/2020 17:44:Paula Delgadillo RN) Results this Hospital Visit: Negative (09/11/2020 17:44:Shannon Cornelius RN) 53e. Hepatitis C: Negative (09/11/2020 17:44:Paula Delgadillo RN) 53h. Mother Tested for HBsAG: Yes (09/11/2020 17:44:Paula Delgadillo RN) 53i. Date Tested: 03/14/2020 00:00 (09/11/2020 17:44:Paula Leona, RN) 53j. Test Result: Negative (09/11/2020 17:44:Shannon Cornelius, RN) Obstetric Procedures 54a, b, c. Obstetric Procedures: Ultrasound; NST (09/11/2020 17:44:Shannon Cornelius RN) Cigarette Smoking Cigarette Smoking: Former Smoker. [id number] (09/11/2020 17:44:Paula Leona, RN) Onset of Labor 56a. PROM >12 Hrs: 3.33 (09/12/2020 16:06:QS system process) 56b. Precipitous Labor <3 Hrs: 3 (09/11/2020 17:44:QS system process) 56c. Prolonged Labor > 20 Hrs: 3 (09/11/2020 17:44:QS system process) 57a. Induction of Labor: N/A (09/11/2020 17:44:Fernanda Mendoza RN) 57c. Non-Vertex Presentation A: Vertex (09/11/2020 17:44:Fernanda Mendoza RN) 57d. Steroids - Lung Mat: None (09/11/2020 17:44:Fernanda Mendoza RN) 57d. Steroids - Lung Mat: Not Applicable (09/11/2020 17:44:Fernanda Mendoza RN) 57g. Moderate/Heavy Meconium: Clear (09/12/2020 16:06:Shannon Cornelius RN) 57h. Intolerance of Labor: N/A (09/11/2020 17:44:Fernanda Mendoza RN) : N/A (09/11/2020 17:44:Fernanda Mendoza RN) 57i. Epidural/Spinal Anesthesia: Epidural (09/11/2020 17:44:Fernanda Mendoza RN) Method of Delivery 58a. Forceps - Unsuccessful A: N/A (09/11/2020 17:44:Fernanda Mendoza RN) 58b. Vacuum - Unsuccessful A: N/A (09/11/2020 17:44:Fernanda Mendoza RN) 58c. Presentation at 58c. Presentation at - A : Vertex (09/11/2020 17:44:Fernanda Mendoza RN) 58c. Presentation at - A : N/A (09/11/2020 17:44:Fernanda Mendoza RN) 58c. Presentation at - A : Cephalic (09/11/2020 17:44:Fernanda Mendoza RN) Final Route and Method of Del 58d. Baby A Route/Delivery: Vaginal (09/12/2020 19:26:Fernanda Mendoza RN) 58e. Trial of Labor Attempted: No (09/11/2020 17:44:Fernanda Mendoza RN) 58e. Trial of Labor Attempted A: N/A (09/11/2020 17:44:Fernanda Mendoza RN) 58e. Trial of Labor Attempted B: N/A (09/11/2020 17:44:Fernanda Mendoza RN) Maternal Morbidity 59b. 3rd or 4th Degree Lacs: Perineal (09/11/2020 17:44:Arabella Neal MD) Birthweight Baby A: 3871 (09/11/2020 17:44:Maria C Beck RN) 60a. Pounds : 8 (09/11/2020 17:44:QS system process) 60b. Ounces: 9 (09/11/2020 17:44:QS system process) 61. GA at Delivery Baby A: 38.5 (09/11/2020 17:44:Fernanda Mendoza RN) : Early Term- 37- 38.6 Weeks (09/11/2020 17:44:QS system process) 62a. 5 Minute Baby A: 9 (09/11/2020 17:44:QS system process)
--- NOTE | 2020-09-12 22:04 | Delivery Summary ---
Del Sum A-C Datetime Report Generated by CPN: 09/12/2020 22:03 DELIVERY PERSONNEL DELIVERY PERSONNEL: [id number] Delivery Doctor:: Arabella Neal MD Labor and Delivery Nurse:: Maria C Beck RNformulation technician Nurse:: Shannon Cornelius RN Cardiopulmonary Supervisor/GENERAL HELPER: Hetal Salinas, Additional Personnel: : Fernanda Mendoza RN MATERNAL INFORMATION Delivery Anesthesia: Epidural Medications After Delivery: Pitocin 30 Units in 500ml NS/D5W Delivery QBL: 50 Delivery QBL Comment: [id number] Maternal Complications: None Provider Comments: Called to patients room as she was complete and +3 with urge to push. SHe pushed through 2 contractions and delivered a viable male infant. After the head delivered a loose nuchal cord was noted and reduced. the shoulders and rest of the body delivered easily. Infant was vigorous at delivery and cord clamping was delayed for 30 seconds. MOther and infant stable. Fundus firm and one cm below LABOR SUMMARY EDC: 09/21/2020 00:00 No. Babies in Womb: 1 Attempted: No Labor Anesthesia: Epidural LABOR INFORMATION Reason for Induction: Gestational Hypertension Onset of Labor: 09/12/2020 16:06 Complete Dilatation: 09/12/2020 19:18 Oxytocin: N/A Group B Beta Strep: Negative Steroids Given: None Reason Steroids Not Administered: Not Applicable MEMBRANES Membranes Rupture Method: Artificial Rupture of Membranes: 09/12/2020 16:06 Length of Rupture (hr): 3.33 Amniotic Fluid Color: Clear Amniotic Fluid Amount: Large Amniotic Fluid Odor: Normal STAGES OF LABOR Stage 1 hr: 3 Stage 1 min: 12 Stage 2 hr: 0 Stage 2 min: 8 Stage 3 hr: 0 Stage 3 min: 4 Total Time in Labor hr: 3 Total Time in Labor min: 24 VAGINAL DELIVERY Episiotomy: None Laceration #1: Perineal Laceration Extension #1: First Degree Laceration Repair: Yes Laceration Repair Note: A figure of eight stitch was placed and hemostasis was obtained. Sponge Count Correct: Yes Sharps Count Correct: Yes CSECTION DELIVERY Primary Indication: N/A Secondary Indication: N/A CSection Incidence: N/A Labor: N/A Elective: N/A CSection Incision: N/A BABY A INFORMATION Infant Delivery Date/Time: 09/12/2020 19:26 Method of Delivery: Vaginal Nurse Controlled Delivery: No Born in Route : No : N/A Forceps: N/A Vacuum Extraction: N/A Shoulder Dystocia : No PRESENTATION/POSITION BABY A Presentation: Cephalic Cephalic Presentation: Vertex Vertex Position: Left Occipital Anterior Breech Presentation: N/A PLACENTA INFORMATION BABY A Placenta Delivery Time : 09/12/2020 19:30 Placenta Method of Delivery: Spontaneous Placenta Status: Delivered SCORES BABY A Heart Rate 1 min: >100 bpm Resp Effort 1 min: Good Cry Reflex Irritability 1 min: Cough or Sneeze or Pulls Away Muscle Tone 1 min: Active Motion Color 1 min: Blue/Pale Resuscitation Effort 1 min: Tactile Stimulation SCORE 1 MIN: 8 Heart Rate 5 min: >100 bpm Resp Effort 5 min: Good Cry Reflex Irritability 5 min: Cough or Sneeze or Pulls Away Muscle Tone 5 min: Active Motion Color 5 min: Body Chesaning, Extremities Blue Resuscitation Effort 5 min: Tactile Stimulation SCORE 5 MIN: 9 INFORMATION BABY A Gestational Age at Delivery: 38.5 Gestational Status: Early Term- 37- 38.6 Weeks Outcome : Liveborn Condition : Stable Sex: Male IDENTIFICATION BABY A Verification Date/Time: 09/12/2020 19:35 ID Band Number: [id number] Mother's Name Verified: Yes Infant RN Verifying Infant: A. Husser RN Additional Verifying Personnel: EShoozy RN WEIGHT/LENGTH BABY A Birthweight (gm): 3871 Infant Weight (lb): 8 Infant Weight (oz): 9 Length (in): 20.00 Infant Length (cm): 50.80 CORD INFORMATION BABY A No. Cord Vessels: 3 Nuchal Cord : Around Neck x1, Loose Cord Blood Taken: Yes-For Eval (Mom's Blood Type - or O+) Infant Suction: None ASSESSMENT BABY A Complications: Multiple Late Decels; Multiple Variable Decels Physical Findings at Delivery: Bruising Physical Findings- Other: facial bruising, small bradley on right thigh Respirations: Appears Normal Skin to Skin: Yes Skin to Skin Time (min): 30 minutes Main Line Assembler/ALS Called : No Care By: Karma Cornelius RN Transferred To: Remains with Mother BABY B INFORMATION : N/A SIGNATURES Signature: with User ID: Jason : with User ID: Jason
[2020-09-12] MEDS ORDERED: FAMOTIDINE 20 MG TABLET ONE (22:07)
[2020-09-12] MEDS: FAMOTIDINE 20 MG TABLET PO SCH (22:20)
[2020-09-13] MEDS: IBUPROFEN 800 MG TABLET PO SCH ×3 (01:41→17:55)
[2020-09-13 06:59] LABS: HEMATOCRIT 32.9 % (36.0-47.0); HEMOGLOBIN 11.6 g/dL (12.0-15.5); MEAN CORPUSCULAR HEMOGLOBIN 31.2 pg (27.0-33.4); MEAN CORPUSCULAR HGB CONC 35.2 g/dL (32.0-36.0); MEAN CORPUSCULAR VOLUME 89 fl (80-97); PLATELET COUNT 186 10^3/uL (150-450); RED BLOOD COUNT 3.71 10^6/uL (3.72-5.28); RED CELL DISTRIBUTION WIDTH 13.3 % (11.5-14.0); WHITE BLOOD COUNT 10.5 10^3/uL (4.0-10.5)
[2020-09-13] MEDS: PRENATAL VITAMIN W DHA CAPSULE PO SCH (09:33)
[2020-09-13] MEDS: FAMOTIDINE 20 MG TABLET PO SCH ×2 (09:34→21:50)
[2020-09-13] MEDS: DOCUSATE SODIUM 100 MG CAPSULE PO SCH ×2 (09:34→17:55)
[2020-09-13] MEDS: SENNOSIDES/DOCUSATE 8.6-50 MG 1 EACH TABLET PO SCH (09:34)
[2020-09-13] MEDS: FERROUS SULFATE 325 MG TABLET PO SCH ×2 (09:34→17:55)
--- NOTE | 2020-09-13 11:13 | PDOC PROGRESS REPORT ---
Subjective-OB Progress Note for:: 09/13/20 Physical Exam (OB) Vital Signs: Temp Pulse Resp BP Pulse Ox 97.6 F 74 16 132/87 H 100 09/13/20 09:17 09/13/20 08:00 09/13/20 08:00 09/13/20 08:00 09/13/20 08:00 Intake & Output 09/12/20 09/13/20 09/14/20 06:59 06:59 06:59 Intake Total 2600 Balance 2600 Weight 97.3 kg - PIH/Pre-Eclampsia Clonus: Negative Headache: Absent Epigastric Pain: No Visual Changes: No - Maternal Morbidity 59. Maternal Morbidity (serious complications experinced by the mother associated with labor and delivery: None of the above - Lochia Lochia Amount: Small 10-25 ml Lochia Color: Rubra/Red - Abdomen Description: Soft Hernia Present: No Bowel Sounds: Normoactive Flatus Presence: Present Stool: No Fundal Description: Firm, Midline Fundal Height: u/u - u/2 Objective-Diagnostic Laboratory: 09/13/20 06:34 09/12/20 12:45 09/12/20 09/12/20 09/12/20 12:45 12:45 12:45 WBC 8.1 RBC 4.00 Hgb 12.3 Hct 35.3 L MCV 88 MCH 30.9 MCHC 35.0 RDW 13.4 Plt Count 213 Sodium 134.4 L Potassium 3.9 Chloride 104 Carbon Dioxide 20 L Anion Gap 10 BUN 9 Creatinine 0.53 Est GFR ( Amer) > 60 Glucose 113 H Uric Acid 5.0 Calcium 8.9 Total Bilirubin 0.7 AST 16 Alkaline Phosphatase 107 Total Protein 6.7 Albumin 3.6 Blood Type O POSITIVE Antibody Screen NEGATIVE 09/13/20 06:34 WBC 10.5 RBC 3.71 L Hgb 11.6 L Hct 32.9 L MCV 89 MCH 31.2 MCHC 35.2 RDW 13.3 Plt Count 186 Sodium Potassium Chloride Carbon Dioxide Anion Gap BUN Creatinine Est GFR ( Amer) Glucose Uric Acid Calcium Total Bilirubin AST Alkaline Phosphatase Total Protein Albumin Blood Type Antibody Screen Assessment and Plan(PN) - Time Spent with Patient Time with patient: Less than 15 minutes Medications reviewed and adjusted accordingly: Yes - Disposition Anticipated Discharge Disposition: Home, Self Care Anticipated Discharge Timeframe: within 36 hours
[2020-09-14] MEDS: IBUPROFEN 800 MG TABLET PO SCH ×2 (02:58→10:00)
[2020-09-14 08:56] VITALS: BP 118/71
--- NOTE | 2020-09-14 09:52 | PDOC PROGRESS REPORT ---
Subjective-OB Progress Note for:: 09/14/20 Subjective: Doing well, no c/o, ready to go home, will take BP at home Physical Exam (OB) Vital Signs: Temp Pulse Resp BP Pulse Ox 97.6 F 72 22 H 118/71 99 09/14/20 09:24 09/14/20 08:00 09/14/20 08:00 09/14/20 08:00 09/14/20 08:00 Intake & Output 09/13/20 09/14/20 09/15/20 06:59 06:59 06:59 Intake Total 2600 Balance 2600 Weight 97.3 kg - PIH/Pre-Eclampsia DTR's: 2 + Clonus: Negative Headache: Absent Epigastric Pain: No Visual Changes: No - Maternal Morbidity 59. Maternal Morbidity (serious complications experinced by the mother associated with labor and delivery: None of the above - Lochia Lochia Amount: Scant < 10 ml Lochia Color: Rubra/Red - Abdomen Description: Soft Hernia Present: No Fundal Description: Firm, Midline Fundal Height: u/u - u/2 Objective-Diagnostic Laboratory: 09/13/20 06:34 09/12/20 12:45 Assessment and Plan(PN) - Assessment and Plan (1) Chronic hypertension during Is this a current diagnosis for this admission?: Yes (2) Encounter for induction of labor Is this a current diagnosis for this admission?: Yes (3) Oligohydramnios Qualifiers: Fetus number: single or unspecified fetus Trimester: third trimester Qualified Code(s): O41.03X0 - Oligohydramnios, third trimester, not applicable or unspecified Is this a current diagnosis for this admission?: Yes (4) Normal vaginal delivery Is this a current diagnosis for this admission?: Yes - Time Spent with Patient Time with patient: Less than 15 minutes Medications reviewed and adjusted accordingly: Yes - Disposition Anticipated Discharge Disposition: Home, Self Care Anticipated Discharge Timeframe: within 24 hours
--- NOTE | 2020-09-14 09:55 | PDOC DISCHARGE SUMMARY ---
Impression - Admit/DC Date/PCP Admission Date/Primary Care Provider: 09/12/20 12:04 COLLINS COLLAZO NP Discharge Date: 09/14/20 - Discharge Diagnosis (1) Chronic hypertension during Is this a current diagnosis for this admission?: Yes (2) Encounter for induction of labor Is this a current diagnosis for this admission?: Yes (3) Oligohydramnios Is this a current diagnosis for this admission?: Yes (4) Normal vaginal delivery Is this a current diagnosis for this admission?: Yes - Additional Information Resuscitation Status: Full Code Discharge Diet: As Tolerated, Regular Discharge Activity: Activity As Tolerated, Pelvic Rest Referrals: COLLINS COLLAZO NP [Primary Care Provider] - (rtc 2 weeks for BP) Home Medications: Pnv,Calcium 72/Iron/Folic Acid [Pnv Plus Multivit Tab] 1 tab PO DAILY 07/02/17 HPI Gestational Age: 38.5 Reason(s) for Admission: Induction of Labor Complication(s): Laceration-Perineal Laceration-Degree: 1st Hospital Course 59. Maternal Morbidity (serious complications experinced by the mother associated with labor and delivery: None of the above Results Laboratory Results: WBC 10.5 10^3/uL (4.0-10.5) 09/13/20 06:34 RBC 3.71 10^6/uL (3.72-5.28) L 09/13/20 06:34 Hgb 11.6 g/dL (12.0-15.5) L 09/13/20 06:34 Hct 32.9 % (36.0-47.0) L 09/13/20 06:34 MCV 89 fl (80-97) 09/13/20 06:34 MCH 31.2 pg (27.0-33.4) 09/13/20 06:34 MCHC 35.2 g/dL (32.0-36.0) 09/13/20 06:34 RDW 13.3 % (11.5-14.0) 09/13/20 06:34 Plt Count 186 10^3/uL (150-450) 09/13/20 06:34 Sodium 134.4 mmol/L (137-145) L 09/12/20 12:45 Potassium 3.9 mmol/L (3.6-5.0) 09/12/20 12:45 Chloride 104 mmol/L (98-107) 09/12/20 12:45 Carbon Dioxide 20 mmol/L (22-30) L 09/12/20 12:45 Anion Gap 10 (5-19) 09/12/20 12:45 BUN 9 mg/dL (7-20) 09/12/20 12:45 Creatinine 0.53 mg/dL (0.52-1.25) 09/12/20 12:45 Est GFR ( Amer) > 60 (>60) 09/12/20 12:45 Est GFR (MDRD) Non-Af > 60 (>60) 09/12/20 12:45 Glucose 113 mg/dL (75-110) H 09/12/20 12:45 Uric Acid 5.0 mg/dL (2.5-6.2) 09/12/20 12:45 Calcium 8.9 mg/dL (8.4-10.2) 09/12/20 12:45 Total Bilirubin 0.7 mg/dL (0.2-1.3) 09/12/20 12:45 Direct Bilirubin 0.1 mg/dL (0.0-0.4) 09/12/20 12:45 Neonat Total Bilirubin Not Reportable 09/12/20 12:45 Neonat Direct Bilirubin Not Reportable 09/12/20 12:45 Neonat Indirect Bili Not Reportable 09/12/20 12:45 AST 16 U/L (14-36) 09/12/20 12:45 ALT 10 U/L (<35) 09/12/20 12:45 Alkaline Phosphatase 107 U/L (38-126) 09/12/20 12:45 Lactate Dehydrogenase 130 U/L (120-246) 09/12/20 12:45 Total Protein 6.7 g/dL (6.3-8.2) 09/12/20 12:45 Albumin 3.6 g/dL (3.5-5.0) 09/12/20 12:45 Urine Creatinine 108.5 mg/dL (16-327) 09/12/20 12:30 Protein/Creatinin Ratio 0.1 mg/mg (0.0-0.2) 09/12/20 12:30 Urine Total Protein 10.2 mg/dL (<12) 09/12/20 12:30 Urine Opiates Screen NEGATIVE 09/12/20 12:30 Urine Methadone Screen NEGATIVE 09/12/20 12:30 Ur Barbiturates Screen NEGATIVE 09/12/20 12:30 Ur Phencyclidine Scrn NEGATIVE 09/12/20 12:30 Ur Amphetamines Screen NEGATIVE 09/12/20 12:30 U Benzodiazepines Scrn NEGATIVE 09/12/20 12:30 Urine Cocaine Screen NEGATIVE 09/12/20 12:30 U Marijuana (THC) Screen NEGATIVE 09/12/20 12:30 RPR NONREACTIVE (NONREACTIVE) 09/12/20 12:45 Blood Type O POSITIVE 09/12/20 12:45 Antibody Screen NEGATIVE 09/12/20 12:45 Plan Health Concerns: BP Plan of Treatment: dc home, take BP at home, report high values Goals: no complications Time Spent: Less than 30 Minutes
[2020-09-14] MEDS: FERROUS SULFATE 325 MG TABLET PO SCH (09:58)
[2020-09-14] MEDS: FAMOTIDINE 20 MG TABLET PO SCH (09:59)
[2020-09-14] MEDS: PRENATAL VITAMIN W DHA CAPSULE PO SCH (09:59)
[2020-09-14] MEDS: DOCUSATE SODIUM 100 MG CAPSULE PO SCH (09:59)
[2020-09-14] MEDS: SENNOSIDES/DOCUSATE 8.6-50 MG 1 EACH TABLET PO SCH (09:59)
== END 2020-09-14 11:30 | disposition home or self-care (01) | DRG 806 ==
LOC: LR 12:04 → 2S 22:25
PROVIDERS: ADMIT Obstetrics & Gynecology; ATTEND Obstetrics & Gynecology
PROC: 10E0XZZ Delivery of Products of Conception, External Approach (ICD-10-PCS; principal; 2020-09-12)
PROC: 0HQ9XZZ Repair Perineum Skin, External Approach (ICD-10-PCS; 2020-09-12)
PROC: 10907ZC Drainage of Amniotic Fluid, Therapeutic from Products of Conception, Via Natural or Artificial Opening (ICD-10-PCS; 2020-09-12)
DX: O10.02 Pre-existing essential hypertension complicating childbirth (principal); O41.03X0 Oligohydramnios, third trimester, not applicable or unspecified; Z37.0 Single live birth; Z20.828 Contact with and (suspected) exposure to other viral communicable diseases; O70.0 First degree perineal laceration during delivery; T43.226A Underdosing of selective serotonin reuptake inhibitors, initial encounter; O99.344 Other mental disorders complicating childbirth; F41.9 Anxiety disorder, unspecified; F32.9 Major depressive disorder, single episode, unspecified; O69.81X0 Labor and delivery complicated by cord around neck, without compression, not applicable or unspecified; Z87.891 Personal history of nicotine dependence; Z91.128 Patient's intentional underdosing of medication regimen for other reason; Z28.21 Immunization not carried out because of patient refusal; Z3A.38 38 weeks gestation of pregnancy
CPT/HCPCS: 1967; 36415; 59025; 80053; 80307; 82570; 83615; 84156; 84550; 85027; 86592; 86850; 86900; 86901; J2590; J2795; J3010; J3490